=== PATIENT | male | born 2000 | race African-American/Black ===

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

== ENCOUNTER 2018-07-15 20:03 | Emergency (ER) | payer OTHER ==
[2018-07-15 20:40] VITALS: BP 116/58
--- NOTE | 2018-07-15 21:41 | ED ---
Abdominal Pain/Male - HPI Summary HPI Summary: 18 year old male presents with onset of generalized abdominal pain, watery loose stool, and headache for past 2 days. States pain is intermittent and lessens after having a BM but then returns within 20-30 minutes. He has noticed some bright red blood mixed in his stool. Associated with some chills. Denies fever, nausea, vomiting, dysuria, frequency, urgency, or hematuria. - History of Current Complaint Chief Complaint: UCRespiratory Stated Complaint: ABD PAIN,HEADACHE Time Seen by Provider: 07/15/18 21:27 Hx Obtained From: Patient Onset/Duration: Gradual Onset, Lasting Days - 2 Timing: Intermittent, Lasting Hours Severity Currently: Moderate Pain Intensity: 5 Location: Diffuse Radiates: No Character: Cramping Aggravating Factor(s): Nothing Alleviating Factor(s): Bowel Movement Associated Signs And Symptoms: Positive: Blood in Stool, Decreased Appetite, Diarrhea. Negative: Fever, Dizzy, Back Pain, Constipation, Urinary Symptoms, Nausea, Vomiting - Allergies/Home Medications Allergies/Adverse Reactions: Allergies Allergy/AdvReac Type Severity Reaction Status Date / Time hydrocodone Allergy HIVES, Verified 07/15/18 22:18 DIFFICULTY BREATHING, ITCHING hydromorphone [From Dilaudid] Allergy Altered Verified 07/15/18 22:18 Mental Status Home Medications: Home Medications Albuterol inh POWDER (NF) [Proair Respiclick] 07/15/18 [History] Calcium Carbonate [Antacid] 2 tab PO ONCE PRN 07/15/18 [History Confirmed ] Ibuprofen [Ibuprofen 100 MG/5 ML] PRN 07/15/18 [History] PMH/Surg Hx/FS Hx/Imm Hx Previously Healthy: Yes Endocrine/Hematology History: Denies: Hx Diabetes Cardiovascular History: Denies: Hx Congenital Heart Disease Respiratory History: Reports: Hx Asthma GI History: Denies: Hx Crohn's Disease, Hx Gall Bladder Disease, Hx Irritable Bowel Sensory History: Denies: Hx Legally Blind, Hx Deafness Opthamlomology History: Denies: Hx Legally Blind - Surgical History Surgery Procedure, Year, and Place: None Infectious Disease History: No Infectious Disease History: Denies: Traveled Outside the [place] in Last 30 Days - Family History Known Family History: Positive: Other - Patient denies any pertinent FHx Negative: Hypertension - Social History Occupation: Student Lives: Dormitory/Roommates Alcohol Use: None Hx Substance Use: No Substance Use Type: Reports: None Hx Tobacco Use: No Smoking Status (MU): Never Smoked Tobacco Review of Systems Positive: Chills Eyes: Negative Cardiovascular: Negative Respiratory: Negative Positive: Abdominal Pain, Diarrhea, Other - Blood in stool Genitourinary: Negative Skin: Negative All Other Systems Reviewed And Are Negative: Yes Physical Exam Triage Information Reviewed: Yes Vital Signs On Initial Exam: Initial Vitals Temp Pulse Resp BP Pulse Ox 101.7 F 118 16 116/58 100 07/15/18 20:36 07/15/18 20:36 07/15/18 20:36 07/15/18 20:36 07/15/18 20:36 Vital Signs Reviewed: Yes Appearance: Positive: No Pain Distress, Ill-Appearing, Thin Skin: Positive: Skin Color Reflects Adequate Perfusion, Dry, Other - Skin hot to touch Neck: Positive: Supple, Nontender, No Lymphadenopathy Respiratory/Lung Sounds: Positive: Clear to Auscultation, Breath Sounds Present Cardiovascular: Positive: RRR, Pulses are Symmetrical in both Upper and Lower Extremities, Tachycardia, S1, S2 Abdomen Description: Positive: No Organomegaly, Soft, Other: - RLQ tenderness to palpation. Negative: CVA Tenderness (R), CVA Tenderness (L), Distended, Guarding Bowel Sounds: Positive: Present Neurological: Positive: Alert, Oriented to Person Place, Time Psychiatric: Positive: Affect/Mood Appropriate Diagnostics - Vital Signs Vital Signs Temp Pulse Resp BP Pulse Ox 07/15/18 20:36 101.7 F 118 16 116/58 100 - Laboratory Lab Statement: Any lab studies that have been ordered have been reviewed, and results considered in the medical decision making process. Abdominal Pain Fem Course/Dx - Course Course Of Treatment: 18 year old male with 2 day history of generalized abdominal pain, frequent loose stools, blood in stool, and headache. Febrile. Mild RLQ pain without rebound. With fever, RLQ pain, and history of blood in stool I am recommending evaluation in ED. Verbalize understanding. Elects to transfer via private vehicle. - Diagnoses Differential Diagnosis/HQI/PQRI: Appendicitis, Other - inflammatory bowel disease, gastroenteritis Provider Diagnoses: Acute abdominal pain, Fever Discharge - Sign-Out/Discharge Documenting (check all that apply): Patient Departure All imaging exams completed and their final reports reviewed: No Studies - Discharge Plan Condition: Stable Disposition: HOME-RECOMMEND TO ED Patient Education Materials: Acute Abdominal Pain (ED) Referrals: [facility] - Thiago ROTHMAN [Primary Care Provider] - Additional Instructions: With your fever and right lower quadrant pain it is recommended that you go to the emergency room for further evaluation of your symptoms. GO DIRECTLY TO THE EMERGENCY ROOM. DO NOT EAT OR DRINK ANYTHING UNTIL YOU HAVE BEEN EVALUATED IN THE EMERGENCY ROOM. - Billing Disposition and Condition Condition: STABLE Disposition: Home-Recommend to ED - Attestation Statements Provider Attestation: Per institutional requirements, I have reviewed the chart, however, I was not consulted specifically or made aware of this patient by the midlevel provider. I did not personally evaluate, interact with , or disposition this patient.
== END 2018-07-15 21:58 | disposition home health service (06) ==
LOC: UCEAST 20:03
DX: R10.31 Right lower quadrant pain (principal); R50.9 Fever, unspecified; R19.7 Diarrhea, unspecified; R51 Headache
CPT/HCPCS: 99212; G0463

== ENCOUNTER 2018-07-15 22:13 | Emergency (ER) | payer OTHER ==
[2018-07-15] MEDS ORDERED: Ondansetron INJ* 2 MG/ML VIAL IV ONE (23:59)
[2018-07-15] MEDS ORDERED: Ketorolac INJ* 30 MG/ML 1 ML VIAL IV PUSH ONE (23:59)
[2018-07-15] MEDS ORDERED: NS 0.9% 1000 ML* 1,000 ML IV ONE (23:59)
[2018-07-16 00:29] LABS: Urine Appearance Clear; Urine Blood 1+ (Negative); Urine Color Yellow; Urine Ketones Negative (Negative); Urine Protein Negative (Negative); Urine Red Blood Cell Trace(0-2/hpf) (Absent); Urine Specific Gravity 1.012 (1.010-1.030); Urine Urobilinogen Negative (Negative); Urine White Blood Cell Trace(0-5/hpf) (Absent)
[2018-07-16 00:34] LABS: ABS Basophils 0 10^3/ul (0-0.2); ABS Eosinophils 0 10^3/ul (0-0.6); ABS Lymphocytes 0.9 10^3/ul (1.0-4.8); ABS Monocytes 0.7 10^3/ul (0-0.8); ABS Neutrophils 7.9 10^3/ul (1.5-7.7); ABS Nucleated RBC 0 10^3/ul; Eosinophil % 0.1 % (0-6); Hematocrit 44 % (42-52); Hemoglobin 14.9 g/dl (14.0-18.0); Lymphocyte % 9.4 % (25-47); Mean Corpuscular HGB Conc 34 g/dl (31-36); Mean Corpuscular Hemoglobin 30 pg (27-31); Mean Corpuscular Volume 89 fL (80-94); Mean Platelet Volume 8.9 um3 (7.4-10.4); Nucleated Red Blood Cells % 0; Platelet Count 223 10^3/ul (150-450); Red Blood Count 4.91 10^6/ul (4.00-5.40); Red Cell Distribution Width 13 % (10.5-15); White Blood Count 9.6 10^3/ul (3.5-10.8)
[2018-07-16 00:58] LABS: EGFR Non-African American 82.7 (>60)
[2018-07-16] MEDS ORDERED: Iohexol 300* (CONTRAST) 10 ML SDV IV ONE (02:17)
--- NOTE | 2018-07-16 02:40 | ED ---
GI/ HPI - HPI Summary HPI Summary: 18 male presents with nausea vomiting diarrhea past few days. He admits to headache. He denies any photophobia. He denies any sinus condition. No cough. No chest pain or shortness breath. He admits to lower abdominal pain. No urinary symptoms. No flank pain. has never had any symptoms before. No recent antibiotics usage. He was to some traces of blood in his stool. No one else is sick. He did not eat anything different. He also admits to fever. Has been taking ibuprofen for his symptoms. - History of Current Complaint Chief Complaint: EDAbdPain Time Seen by Provider: 07/15/18 23:53 Stated Complaint: ABD PAIN/HEADACHE Pain Intensity: 6 - Allergy/Home Medications Allergies/Adverse Reactions: Allergies Allergy/AdvReac Type Severity Reaction Status Date / Time hydrocodone Allergy HIVES, Verified 07/15/18 22:18 DIFFICULTY BREATHING, ITCHING hydromorphone [From Dilaudid] Allergy Altered Verified 07/15/18 22:18 Mental Status PMH/Surg Hx/FS Hx/Imm Hx Endocrine/Hematology History: Denies: Hx Diabetes Cardiovascular History: Denies: Hx Congenital Heart Disease, Hx Hypertension Respiratory History: Reports: Hx Asthma GI History: Denies: Hx Crohn's Disease, Hx Gall Bladder Disease, Hx Irritable Bowel History: Denies: Hx Renal Disease Sensory History: Denies: Hx Legally Blind, Hx Deafness Opthamlomology History: Denies: Hx Legally Blind - Surgical History Surgery Procedure, Year, and Place: None - Immunization History Immunizations Up to Date: Yes Infectious Disease History: No Infectious Disease History: Denies: Traveled Outside the [place] in Last 30 Days - Family History Known Family History: Positive: Other - Patient denies any pertinent FHx Negative: Hypertension - Social History Alcohol Use: None Hx Substance Use: No Substance Use Type: Reports: None Hx Tobacco Use: No Smoking Status (MU): Never Smoked Tobacco Review of Systems Positive: Fever Negative: Chest Pain Negative: Shortness Of Breath, Cough Positive: Abdominal Pain, Vomiting, Diarrhea, Nausea All Other Systems Reviewed And Are Negative: Yes Physical Exam Triage Information Reviewed: Yes Vital Signs On Initial Exam: Initial Vitals Temp Pulse Resp BP Pulse Ox 103.5 F 111 16 138/60 97 07/15/18 22:15 07/15/18 22:15 07/15/18 22:15 07/15/18 22:15 07/15/18 22:15 Vital Signs Reviewed: Yes Appearance: Positive: Well-Appearing Skin: Positive: Warm, Dry Head/Face: Positive: Normal Head/Face Inspection Eyes: Positive: Normal, EOMI, TEJAS, Conjunctiva Clear ENT: Positive: Normal ENT inspection, Pharynx normal, TMs normal Neck: Positive: Supple, Nontender, No Lymphadenopathy. Negative: Nuchal Rigidity Respiratory/Lung Sounds: Positive: Clear to Auscultation, Breath Sounds Present Cardiovascular: Positive: Normal, RRR Abdomen Description: Positive: Soft, Other: - tenderness lower abd Bowel Sounds: Positive: Present Musculoskeletal: Positive: Normal Neurological: Positive: Normal Psychiatric: Positive: Normal Diagnostics - Vital Signs Vital Signs Temp Pulse Resp BP Pulse Ox 07/16/18 02:00 93 99 07/16/18 01:42 95 114/54 96 07/16/18 01:12 97 113/56 97 07/16/18 01:00 105 100 07/16/18 00:12 106 130/72 98 07/15/18 22:15 103.5 F 111 16 138/60 97 - Laboratory Lab Results: Lab Results 07/15/18 07/16/18 07/16/18 Range/Units 23:58 00:28 00:28 WBC 9.6 (3.5-10.8) 10^3/ul RBC 4.91 (4.00-5.40) 10^6/ul Hgb 14.9 (14.0-18.0) g/dl Hct 44 (42-52) % MCV 89 (80-94) fL MCH 30 (27-31) pg MCHC 34 (31-36) g/dl RDW 13 (10.5-15) % Plt Count 223 (150-450) 10^3/ul MPV 8.9 (7.4-10.4) um3 Neut % (Auto) 82.6 (38-83) % Lymph % (Auto) 9.4 L (25-47) % Mcintosh % (Auto) 7.5 H (0-7) % Eos % (Auto) 0.1 (0-6) % Baso % (Auto) 0.4 (0-2) % Absolute Neuts (auto) 7.9 H (1.5-7.7) 10^3/ul Absolute Lymphs (auto) 0.9 L (1.0-4.8) 10^3/ul Absolute Monos (auto) 0.7 (0-0.8) 10^3/ul Absolute Eos (auto) 0 (0-0.6) 10^3/ul Absolute Basos (auto) 0 (0-0.2) 10^3/ul Absolute Nucleated RBC 0 10^3/ul Nucleated RBC % 0 Sodium 137 (135-145) mmol/L Potassium 3.9 (3.5-5.0) mmol/L Chloride 102 (101-111) mmol/L Carbon Dioxide 26 (22-32) mmol/L Anion Gap 9 (2-11) mmol/L BUN 11 (6-24) mg/dL Creatinine 1.13 (0.67-1.17) mg/dL Est GFR ( Amer) 100.1 (>60) Est GFR (Non-Af Amer) 82.7 (>60) BUN/Creatinine Ratio 9.7 (8-20) Glucose 109 H (70-100) mg/dL Lactic Acid (0.5-2.0) mmol/L Calcium 9.7 (8.6-10.3) mg/dL Total Bilirubin 0.60 (0.2-1.0) mg/dL AST 17 (13-39) U/L ALT 10 (7-52) U/L Alkaline Phosphatase 77 (34-104) U/L C-Reactive Protein 80.58 H (<8.01) mg/L Total Protein 7.9 (6.4-8.9) g/dL Albumin 4.7 (3.2-5.2) g/dL Globulin 3.2 (2-4) g/dL Albumin/Globulin Ratio 1.5 (1-3) Lipase < 10 L (11.0-82.0) U/L Urine Color Yellow Urine Appearance Clear Urine pH 5.0 (5-9) Ur Specific [place] 1.012 (1.010-1.030) Urine Protein Negative (Negative) Urine Ketones Negative (Negative) Urine Blood 1+ A (Negative) Urine Nitrate Negative (Negative) Urine Bilirubin Negative (Negative) Urine Urobilinogen Negative (Negative) Ur Leukocyte Esterase Negative (Negative) Urine WBC (Auto) Trace(0-5/hpf) (Absent) Urine RBC (Auto) Trace(0-2/hpf) (Absent) Urine Bacteria Absent (Absent) Urine Glucose Negative (Negative) 07/16/18 Range/Units 00:28 WBC (3.5-10.8) 10^3/ul RBC (4.00-5.40) 10^6/ul Hgb (14.0-18.0) g/dl Hct (42-52) % MCV (80-94) fL MCH (27-31) pg MCHC (31-36) g/dl RDW (10.5-15) % Plt Count (150-450) 10^3/ul MPV (7.4-10.4) um3 Neut % (Auto) (38-83) % Lymph % (Auto) (25-47) % Mcintosh % (Auto) (0-7) % Eos % (Auto) (0-6) % Baso % (Auto) (0-2) % Absolute Neuts (auto) (1.5-7.7) 10^3/ul Absolute Lymphs (auto) (1.0-4.8) 10^3/ul Absolute Monos (auto) (0-0.8) 10^3/ul Absolute Eos (auto) (0-0.6) 10^3/ul Absolute Basos (auto) (0-0.2) 10^3/ul Absolute Nucleated RBC 10^3/ul Nucleated RBC % Sodium (135-145) mmol/L Potassium (3.5-5.0) mmol/L Chloride (101-111) mmol/L Carbon Dioxide (22-32) mmol/L Anion Gap (2-11) mmol/L BUN (6-24) mg/dL Creatinine (0.67-1.17) mg/dL Est GFR ( Amer) (>60) Est GFR (Non-Af Amer) (>60) BUN/Creatinine Ratio (8-20) Glucose (70-100) mg/dL Lactic Acid 0.7 (0.5-2.0) mmol/L Calcium (8.6-10.3) mg/dL Total Bilirubin (0.2-1.0) mg/dL AST (13-39) U/L ALT (7-52) U/L Alkaline Phosphatase (34-104) U/L C-Reactive Protein (<8.01) mg/L Total Protein (6.4-8.9) g/dL Albumin (3.2-5.2) g/dL Globulin (2-4) g/dL Albumin/Globulin Ratio (1-3) Lipase (11.0-82.0) U/L Urine Color Urine Appearance Urine pH (5-9) Ur Specific [place] (1.010-1.030) Urine Protein (Negative) Urine Ketones (Negative) Urine Blood (Negative) Urine Nitrate (Negative) Urine Bilirubin (Negative) Urine Urobilinogen (Negative) Ur Leukocyte Esterase (Negative) Urine WBC (Auto) (Absent) Urine RBC (Auto) (Absent) Urine Bacteria (Absent) Urine Glucose (Negative) Result Diagrams: 07/16/18 00:28 07/16/18 00:28 Lab Statement: Any lab studies that have been ordered have been reviewed, and results considered in the medical decision making process. Re-Evaluation - Re-Evaluation First Eval Re-Evaluation Time: 02:50 Change: Improved Comment: feeling better, no longer nausous GIGU Course/Dx - Course Course Of Treatment: 18 male presents with nausea vomiting diarrhea past few days. He admits to headache. He denies any photophobia. He denies any sinus condition. No cough. No chest pain or shortness breath. He admits to lower abdominal pain. No urinary symptoms. No flank pain. has never had any symptoms before. No recent antibiotics usage. He was to some traces of blood in his stool. No one else is sick. He did not eat anything different. He also admits to fever. Has been taking ibuprofen for his symptoms. On exam tenderness LLQ. Lungs clear to auscultation. Pharynx normal. Labs within normal limits. signed out to dr ulrich pending CT for dispo. - Diagnoses Differential Diagnoses - Male: Diverticulosis, Gastroenteritis (Bacterial), Gastroenteritis (Viral) Provider Diagnoses: Nausea vomiting and diarrhea Discharge - Sign-Out/Discharge Documenting (check all that apply): Sign-Out Patient Signing out patient TO: Casey Ulrich - Discharge Plan Forms: *School Release Referrals: [facility] - Thiago ROTHMAN [Primary Care Provider] -
--- NOTE | 2018-07-16 02:57 | RAD ---
EXAM: CT Abdomen and Pelvis With Intravenous Contrast EXAM DATE/TIME: 07/16/2018 2:19 AM CLINICAL HISTORY: 18 years old, male; Pain; Abdominal pain; Flank; Left lower quadrant (llq); Additional info: Llq pain TECHNIQUE: Axial computed tomography images of the abdomen and pelvis with intravenous contrast. All CT scans at this facility use at least one of these dose optimization techniques: automated exposure control; mA and/or kV adjustment per patient size (includes targeted exams where dose is matched to clinical indication); or iterative reconstruction. Coronal and sagittal reformatted images were created and reviewed. CONTRAST: 97 ml of OMNI 300 administered intravenously. COMPARISON: No relevant prior studies available. FINDINGS: Lower thorax: No acute findings. ABDOMEN: Liver: Punctate low attenuating focus in hepatic segment VII is indeterminate. No enhancing liver lesions. Normal liver size. Gallbladder and bile ducts: Normal. No calcified stones. No ductal dilation. Pancreas: Normal. No ductal dilation. Spleen: Normal. No splenomegaly. Adrenals: Normal. No mass. Kidneys and ureters: No renal solid cortical lesions, calculi, or pelvocaliectasis. Stomach and bowel: Incompletely distended grossly normal stomach. Normal caliber small bowel. No colonic masses or segmental wall thickening. Appendix: Normal caliber appendix without wall thickening or adjacent inflammation. PELVIS: Bladder: Thin-walled bladder with no focal nodularity, perivesicular stranding, or calcifications. Reproductive: Normal sized prostate. Normal seminal vesicles. ABDOMEN and PELVIS: Intraperitoneal space: Normal. No free air. No significant fluid collection. Bones/joints: No fractures. No suspicious bone lesions. Soft tissues: Normal. No hernia. Vasculature: Normal caliber aorta with no evidence of dissection or rupture. Patent IVC. Lymph nodes: Normal. No enlarged lymph nodes. IMPRESSION: No CT findings to correlate with patient's symptomatology. Specifically no obstructing renal or ureteral calculi. To contact [employer] with a general question: [facility] - [phone] For direct physician to physician contact: Physician Hotline - [phone] [facility] ([facility] Facility ID #[id number])
--- NOTE | 2018-07-16 03:18 | ED ---
Progress - Progress Note Progress Note: -002:30 hrs - Pt sign out received from BENJAMIN Saunders at the end of her shift due to pending CT results - Results/Orders Results/Orders: ABD/PEL CT IMPRESSION: No CT findings to correlate with patient's symptomatology. Specifically no obstructing renal or ureteral calculi. The ED physician reviewed this radiology report. Re-Evaluation - Re-Evaluation First Eval Re-Evaluation Time: 02:50 Change: Improved Comment: Feeling better, no longer nauseous Second Eval Re-Evaluation Time: 03:30 Change: Unchanged - Pt reports diarrhea in the ED Course/Dx - Course Course Of Treatment: 18 male presents with nausea vomiting diarrhea past few days. He admits to headache. He denies any photophobia. He denies any sinus condition. No cough. No chest pain or shortness breath. He admits to lower abdominal pain. No urinary symptoms. No flank pain. has never had any symptoms before. No recent antibiotics usage. He was to some traces of blood in his stool. No one else is sick. He did not eat anything different. He also admits to fever. Has been taking ibuprofen for his symptoms. On exam tenderness LLQ. Lungs clear to auscultation. Pharynx normal. Labs within normal limits. signed out to dr ulrich pending CT for dispo. An Abd/Pel Ct is unremarkable. The pt will be discharged with a final Dx of Abdominal Pain, nausea vomiting and diarrhea. - Diagnoses Provider Diagnoses: Nausea vomiting and diarrhea, Abdominal pain, Viral syndrome Discharge - Sign-Out/Discharge Documenting (check all that apply): Patient Departure - DC - Discharge Plan Condition: Stable Disposition: HOME Patient Education Materials: Acute Nausea and Vomiting (ED), Viral Syndrome (ED ), Abdominal Pain (ED) Forms: *School Release Referrals: [facility] - Thiago ROTHMAN [Primary Care Provider] - Additional Instructions: Follow up with PCP in 1-3 days. Return to ED for any new or worsening symptoms - Billing Disposition and Condition Condition: STABLE Disposition: Home - Attestation Statements Document Initiated by Scribe: Yes Documenting Scribe: Anali Thapa Provider For Whom Scribe is Documenting (Include Credential): Dr. Casey Ulrich MD Scribe Attestation: Anali Liriano , scribed for Dr. Casey Ulrich MD on 07/16/18 at 0558. Scribe Documentation Reviewed: Yes Provider Attestation: The documentation as recorded by the scribe, Anali Thapa accurately reflects the service I personally performed and the decisions made by me, Dr. Casey Ulrich MD
[2018-07-16 04:07] VITALS: BP 116/62
== END 2018-07-16 04:25 | disposition home or self-care (01) ==
LOC: ED 22:13
DX: R11.2 Nausea with vomiting, unspecified (principal); R19.7 Diarrhea, unspecified; Z88.5 Allergy status to narcotic agent
CPT/HCPCS: 36415; 74177; 80053; 81003; 81015; 83605; 83690; 85025; 86140; 87086; 96374; 96375; 99284; J1885; J2405; Q9967